=== PATIENT | male | born 1950 | race Caucasian/White ===

== ENCOUNTER 2024-10-22 10:13 | Outpatient (RCR) | payer MEDICARE, OTHER, SELFPAY ==
[2024-09-24 10:05] VITALS: BP 133/81
[2024-09-24] MEDS: LEQEMBI 258 MG IV ×2 (10:33)
[2024-09-24 12:00] VITALS: BP 98/63
[2024-10-08 10:12] VITALS: BP 148/79
[2024-10-08] MEDS: LEQEMBI 258 MG IV ×2 (10:31)
[2024-10-08 11:40] VITALS: BP 112/61
[2024-10-22 10:33] VITALS: BP 101/62
[2024-10-22] MEDS: LEQEMBI 258 MG IV ×2 (11:02)
== END 2024-10-23 23:59 | disposition home or self-care (01) ==
LOC: OID 10:13
PROVIDERS: ATTENDING PHYSICIAN Psychiatry & Neurology Neurology; FAMILY PHYSICIAN Family Medicine
DX: G30.1 Alzheimer's disease with late onset (principal); G31.84 Mild cognitive impairment of uncertain or unknown etiology; Z00.6 Encounter for examination for normal comparison and control in clinical research program
CPT/HCPCS: 96365; J0174

== ENCOUNTER 2024-11-20 13:33 | Outpatient (RCR) | payer MEDICARE, OTHER, SELFPAY ==
[2024-11-05 10:41] VITALS: BP 89/57
[2024-11-05] MEDS: LEQEMBI 258 MG IV ×2 (10:55)
[2024-11-05 12:45] VITALS: BP 100/50
[2024-11-20] MEDS: LEQEMBI 258 MG IV ×2 (14:19)
[2024-11-20 14:25] VITALS: BP 109/63
[2024-11-20 15:40] VITALS: BP 110/60
== END 2024-11-21 09:42 | disposition home or self-care (01) ==
LOC: OID 13:33
PROVIDERS: ATTENDING PHYSICIAN Psychiatry & Neurology Neurology; FAMILY PHYSICIAN Family Medicine
DX: G30.1 Alzheimer's disease with late onset (principal); G31.84 Mild cognitive impairment of uncertain or unknown etiology; Z00.6 Encounter for examination for normal comparison and control in clinical research program; F02.80 Dementia in other diseases classified elsewhere, unspecified severity, without behavioral disturbance, psychotic disturbance, mood disturbance, and anxiety
CPT/HCPCS: 96365; J0174

== ENCOUNTER 2024-12-18 10:03 | Outpatient (RCR) | payer MEDICARE, OTHER, SELFPAY ==
[2024-12-04 10:15] VITALS: BP 136/67
[2024-12-04] MEDS: LEQEMBI 258 MG IV ×2 (10:33)
--- NOTE | 2024-12-05 11:13 | PTCARENOTE ---
spoke with patient this morning regarding his next mri. Pt states MRI is scheduled for 12/11/24 @ 12:15 pm.
[2024-12-18 10:18] VITALS: BP 117/60
[2024-12-18] MEDS: LEQEMBI 258 MG IV ×2 (10:37)
== END 2024-12-19 08:09 | disposition home or self-care (01) ==
LOC: OID 10:03
PROVIDERS: ATTENDING PHYSICIAN Psychiatry & Neurology Neurology; FAMILY PHYSICIAN Family Medicine
DX: G30.1 Alzheimer's disease with late onset (principal); G31.84 Mild cognitive impairment of uncertain or unknown etiology; F02.80 Dementia in other diseases classified elsewhere, unspecified severity, without behavioral disturbance, psychotic disturbance, mood disturbance, and anxiety; Z00.6 Encounter for examination for normal comparison and control in clinical research program
CPT/HCPCS: 96365; J0174

== ENCOUNTER 2025-01-14 10:41 | Outpatient (RCR) | payer MEDICARE, OTHER, SELFPAY ==
[2024-12-31 11:45] VITALS: BP 128/66
[2024-12-31] MEDS: LEQEMBI 258 MG IV ×2 (11:55)
[2025-01-14 10:53] VITALS: BP 109/67
[2025-01-14] MEDS: LEQEMBI 258 MG IV ×2 (11:05)
== END 2025-01-15 10:44 | disposition home or self-care (01) ==
LOC: OID 10:41
PROVIDERS: ATTENDING PHYSICIAN Psychiatry & Neurology Neurology; FAMILY PHYSICIAN Family Medicine
DX: G30.1 Alzheimer's disease with late onset (principal); G31.84 Mild cognitive impairment of uncertain or unknown etiology; F02.80 Dementia in other diseases classified elsewhere, unspecified severity, without behavioral disturbance, psychotic disturbance, mood disturbance, and anxiety; Z00.6 Encounter for examination for normal comparison and control in clinical research program
CPT/HCPCS: 96365; J0174

== ENCOUNTER 2025-02-11 11:04 | Outpatient (RCR) | payer MEDICARE, OTHER, SELFPAY ==
[2025-01-28 11:25] VITALS: BP 117/65
[2025-01-28] MEDS: LEQEMBI 258 MG IV ×2 (11:40)
[2025-01-28 12:49] VITALS: BP 108/60
[2025-02-11 11:10] VITALS: BP 118/70
[2025-02-11] MEDS: LEQEMBI 258 MG IV ×2 (11:20)
== END 2025-02-12 10:16 | disposition home or self-care (01) ==
LOC: OID 11:04
PROVIDERS: ATTENDING PHYSICIAN Psychiatry & Neurology Neurology; FAMILY PHYSICIAN Family Medicine
DX: G30.1 Alzheimer's disease with late onset (principal); F02.80 Dementia in other diseases classified elsewhere, unspecified severity, without behavioral disturbance, psychotic disturbance, mood disturbance, and anxiety; Z00.6 Encounter for examination for normal comparison and control in clinical research program
CPT/HCPCS: 96365; J0174

== ENCOUNTER 2025-03-11 10:02 | Outpatient (RCR) | payer MEDICARE, OTHER, SELFPAY ==
[2025-02-25] MEDS: LEQEMBI 258 MG IV ×2 (10:44)
[2025-02-25 10:47] VITALS: BP 113/61
[2025-02-25 12:05] VITALS: BP 114/54
[2025-03-11 10:10] VITALS: BP 95/47
[2025-03-11] MEDS: LEQEMBI 258 MG IV ×2 (10:32)
== END 2025-03-25 23:59 | disposition home or self-care (01) ==
LOC: OID 10:02
PROVIDERS: ATTENDING PHYSICIAN Psychiatry & Neurology Neurology; FAMILY PHYSICIAN Family Medicine
DX: G30.1 Alzheimer's disease with late onset (principal); F02.80 Dementia in other diseases classified elsewhere, unspecified severity, without behavioral disturbance, psychotic disturbance, mood disturbance, and anxiety; Z00.6 Encounter for examination for normal comparison and control in clinical research program
CPT/HCPCS: 96365; J0174